=== PATIENT | female | born 1990 | race American Indian/Alaskan Native ===

== ENCOUNTER 2016-11-27 14:04 | Outpatient (CLI) | payer SELFPAY ==
[2016-11-27] MEDS ORDERED: LACTATED RINGERS 500 ML IV ONE (14:39)
[2016-11-27 14:58] LABS: Urine Drugs of Abuse Note Disclamer
[2016-11-27 15:52] VITALS: BP 105/62
--- NOTE | 2016-11-28 09:34 | Ultrasound Report ---
ULTRASOUND BIOPHYSICAL PROFILE: History: well being, unknown dates Technique: Transabdominal ultrasound with Doppler interrogation. 2 - breathing movements 2 - movements 2 - posture and tone 2 - Qualitative amniotic fluid volume 8 - TOTAL SCORE OF POSSIBLE 8 Heart Rate (bpm) 138
--- NOTE | 2016-11-28 09:44 | Ultrasound Report ---
ULTRASOUND OB GREATER THAN 14 WEEKS FETUS ULTRASOUND OB TRANSVAGINAL History: well-being. Technique: Transabdominal and transvaginal ultrasound with Doppler interrogation. Gestation: Single Position: Cephalic Amniotic Fluid: Normal GEN = 11.8 cm Placenta: Posterior, left lateral Placental Grade: 1 Heart Rate: 133 BPM Cervical length: 2.4 cm (Normal > 3 cm) NEUROANATOMY VISUALIZED: Choroid Plexus Cisterna Magnum Cerebellum Lateral Ventricle ANATOMY VISUALIZED: Stomach Kidneys Bladder Diaphragm 4 Chamber Heart Heart 3 Vessel Cord Abd. Cord Insert SPINE VISUALIZED: Longitudinal Transverse BPD: 8.4 cm = 34 w 0 d HC: 31.1 cm = 34 w 5 d AC: 30.1 cm = 34 w 5 d FL: 6.8 cm = 34 w 5 d HC/AC Ratio: 1.01 Cephalic Index: 80.5 Estimated Weight: 2488 grams LMP: Uncertain Clinical age = w d EDC: US Gest. Age = 34 w 4 d EDC: 01/04/17
== END 2016-11-27 17:49 | disposition home or self-care (01) ==
LOC: TRG 14:04
PROVIDERS: ATTEND Obstetrics & Gynecology
DX: O99.333 Smoking (tobacco) complicating pregnancy, third trimester (principal); O47.03 False labor before 37 completed weeks of gestation, third trimester; Z3A.34 34 weeks gestation of pregnancy
CPT/HCPCS: 59025; 76805; 76817; 76819; 80307